=== PATIENT | female | born 1980 | race Caucasian/White ===

== ENCOUNTER → 2018-09-27 | Outpatient (REF) ==
--- NOTE | 2018-09-28 02:02 | REP ---
Clinical: Right hand pain. Technique: AP, lateral, bilateral oblique views of the right hand. Findings: Osseous structures, joint spaces, and surrounding soft tissues are normal. No overt arthritic changes are appreciated. No evidence for acute injury. Surrounding soft tissues are unremarkable. Impression: Age-appropriate right hand radiographs. Electronically Signed by Adam Garcia MD 09/28/2018 01:53 A
== END ==
LOC: M SMT 10:43
PROVIDERS: ATTEND Internal Medicine
DX: Z02.9 Encounter for administrative examinations, unspecified (principal)

== ENCOUNTER → 2025-03-19 | Outpatient (REF) | LOC: M PLAIMG 09:01 | PROVIDERS: ATTEND Internal Medicine | DX: Z01.89 Encounter for other specified special examinations (principal) ==